=== PATIENT | male | born 1930 | race Caucasian/White ===

== ENCOUNTER → 2016-08-24 | Outpatient (CLI) | payer BC ==
--- NOTE | 2016-08-24 11:49 | DIAGNOSTIC IMAGING REPORT ---
CHEST 2 VIEWS ROUTINE HISTORY: SPASMODIC COUGH COMPARISON: None. FINDINGS: No pneumothorax. No pleural effusions. The lungs are hyperexpanded with apical predominant emphysematous changes. Punctate calcified granuloma within the left upper lobe. The heart is normal in size. Increased markings at the lung bases favors vascular crowding. IMPRESSION: Emphysema. No focal lung consolidations to suggest pneumonia. Electronically signed by: Jon Fung M.D. 08/24/2016 11:47 AM Dictated Date/Time: 08/24/2016 11:45 AM
== END | disposition home or self-care (01) ==
LOC: C.RAD1850 11:26
PROVIDERS: ATTEND Nurse Practitioner Family
DX: R05 Cough (principal); R09.89 Other specified symptoms and signs involving the circulatory and respiratory systems; J20.9 Acute bronchitis, unspecified

== ENCOUNTER → 2017-01-27 | Outpatient (CLI) | payer BC | END | disposition home or self-care (01) | LOC: C.MAMM 14:40 | PROVIDERS: ATTEND Family Medicine | DX: M85.88 Other specified disorders of bone density and structure, other site (principal) ==

== ENCOUNTER → 2017-05-24 | Outpatient (CLI) | payer BC ==
--- NOTE | 2017-05-24 10:47 | DIAGNOSTIC IMAGING REPORT ---
RIGHT HAND 3 VIEWS CLINICAL HISTORY: Right hand pain. FINDINGS: 3 views the right hand are obtained. No prior studies are available for comparison at the time of dictation. The skeletal structures are osteopenic. No fracture is seen. 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 There is advanced joint narrowing at the radiocarpal articulation. 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 Moderate osteoarthritic change is present the first carpometacarpal joint with bony sclerosis, overgrowth, and subluxation. Mild arthritic change is seen at the first metacarpophalangeal joint. There is osteoarthritic change involving the interphalangeal joints, distal greater than proximal. 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 Subluxation is noted at the second distal interphalangeal joint. Mild soft tissue swelling is present in the fingers and around the wrist. IMPRESSION: 1. Generalized osteopenia. No acute fracture is seen. 2. 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 3. There is marked widening between the scaphoid and lunate with proximal migration of the distal carpal row consistent with a SLAC wrist. 4. 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 5. Additional foci of arthritic change as above. Electronically signed by: Boris Vargas M.D. 05/24/2017 10:46 AM Dictated Date/Time: 05/24/2017 10:42 AM
== END | disposition home or self-care (01) ==
LOC: C.RAD1850 10:24
PROVIDERS: ATTEND Family Medicine
DX: M62.81 Muscle weakness (generalized) (principal); M79.641 Pain in right hand

== ENCOUNTER → 2017-06-27 | Outpatient (CLI) | payer BC | END | disposition home or self-care (01) | LOC: C.RDSM 14:55 | PROVIDERS: ATTEND Physical Medicine & Rehabilitation Sports Medicine | DX: M19.031 Primary osteoarthritis, right wrist (principal) ==

== ENCOUNTER → 2017-07-14 | Outpatient (CLI) | payer BC | END | disposition home or self-care (01) | LOC: C.RDSM 12:58 | PROVIDERS: ATTEND Orthopaedic Surgery | DX: M79.641 Pain in right hand (principal) ==

== ENCOUNTER 2017-08-12 20:41 | Inpatient (IN) | payer BC, OTHER ==
[~2017-08-12] VITALS: Ht 170.2 cm; Wt 69.7 kg
--- NOTE | 2017-08-12 21:00 | EMERGENCY ROOM VISIT NOTE ---
History Report prepared by Juanitaibxin: Priti Rosenbaum Under the Supervision of: Dr. Farhat Davidson M.D. First contact with patient: 20:51 Chief Complaint: GI ASSESSMENT Stated Complaint: BLOODY DIARRHEA History of Present Illness The patient is an 86 year old male who presents to the Emergency Room with complaints of persistent bloody diarrhea since this morning. He is accompanied by his son. He admits he took "6 to 7 325 mg Aspirin tablets for the past 3 days " because he was experiencing "congestion". This morning he started experiencing bright red blood in his stool. The color of his stool has gradually become darker in color throughout the day. He believes he's had 3 bloody episodes of diarrhea over the course of the day. The patient went to a local walk in clinic earlier this evening and was referred here to the ED. He admits to a history of diverticulosis. He denies ever needing a blood transfusion in the past. The patient denies any chest pain, abdominal pain or weakness. His son notes he did receive a flu shot this year. Source of History: patient Onset: this morning Position: other (rectum) Timing: other (persistent) Modifying Factors (Relieving): other (Aspirin) Associated Symptoms: No chest pain, No abdominal pain, No weakness Review of Systems See HPI for pertinent positives & negatives. A total of 10 systems reviewed and were otherwise negative. Past Medical & Surgical Medical Problems: (1) Diverticulosis Social History Smoking Status: Never Smoker Alcohol Use: none Drug Use: none Marital Status: Housing Status: lives with family Occupation Status: retired Current/Historical Medications Scheduled Aspirin (Aspirin Ec), 81 MG PO DAILY Calcium Carbonate-Vitamin D (Calcium + D3 600-200 mg-Unit), 1 TAB PO DAILY Cholecalciferol (Vitamin D3), 2,000 UNITS PO DAILY Coenzyme Q10 (Ubidecarenone) (Co Q-10), 50 MG PO DAILY Cyanocobalamin (Vitamin B-12), Unknown Dose PO DAILY Desonide 0.05% (Desowen 0.05%), 1 APPLN TOP BID Dorzolamide Hcl-Timolol Maleat (Cosopt Oph), 1 DROPS OPB BID Fish Oil (Flint-3), 1,000 MG PO BID Latanoprost (Xalatan 0.005% Oph Abigail), 1 DROPS OPB HS Metoprolol Succ (Toprol Xl) (Toprol-Xl), 25 MG PO DAILY Multivitamin (Multivitamin), 1 TAB PO DAILY Phenazopyridine HCl (Pyridium), 200 MG PO TID Pyridoxine (Vitamin B6), 200 MG PO DAILY Simvastatin (Zocor), 20 MG PO QPM Tamsulosin Hcl (Flomax), 0.4 MG PO DAILY Scheduled PRN Guaifenesin-Codeine (Codeine/Guaifenesin 100-10 mg/5Ml), 10 ML PO Q6H PRN for Cough Lansoprazole (Prevacid), 30 MG PO DAILY PRN for REFLUX Naproxen (Aleve), 220 MG PO Q8 PRN for Pain Allergies Coded Allergies: Celecoxib (Verified Adverse Reaction, Intermediate, DIARRHEA, 08/12/17) Physical Exam Vital Signs Date Time Temp Pulse Resp B/P (MAP) Pulse Ox O2 Delivery O2 Flow Rate FiO2 08/12/17 23:43 83 18 144/97 100 Room Air 08/12/17 22:44 85 18 161/91 100 Room Air 08/12/17 21:08 Room Air 08/12/17 20:44 36.3 81 20 129/87 100 Room Air Physical Exam GENERAL: Patient is a healthy-appearing well-nourished 86 year old male HEAD: Normocephalic atraumatic EYES: Ocular movements intact pupils equal and react to light OROPHARYNX mucous membranes are moist no exudates present no erythema or edema present NECK: Supple no nuchal rigidity CHEST: Good equal expansion LUNGS: Clear and equal to auscultation CARDIAC: Normal S1 and S2 ABDOMEN: Soft nontender no guarding BACK: No CVA tenderness RECTAL: Dark red blood per rectum EXTREMITIES: No pain upon palpation normal muscle strength in all groups no clubbing cyanosis or edema NEURO: Patient is following commands and answering questions appropriately. Alert and oriented x3 Cranial Nerves 2-12 grossly intact Medical Decision & Procedures ER Provider Diagnostic Interpretation: Radiology results as stated below per my review and radiologist interpretation: CHEST ONE VIEW PORTABLE CLINICAL HISTORY: Congestion. COMPARISON STUDY: Chest radiograph August 24, 2016. FINDINGS: Mild left basilar opacity is suggestive of atelectasis. There is no consolidation to suggest pneumonia. There is no evidence of pulmonary edema. Cardiomediastinal silhouette is stable. IMPRESSION: No acute cardiopulmonary findings. Electronically signed by: Braeden Cha M.D. 08/12/2017 10:[address] OF THE ABDOMEN AND PELVIS WITH CONTRAST CLINICAL HISTORY: Rectal bleed. COMPARISON STUDY: None. TECHNIQUE: Following IV administration of 115 mL of Optiray-320, axial images of the abdomen and pelvis were obtained from the lung bases to the proximal femurs. Images were reviewed in the axial, sagittal, and coronal planes. IV contrast was administered without complication. A dose lowering technique was utilized adhering to the principles of ALARA. CT DOSE: 287.89 mGy.cm FINDINGS: Note is made of a 1.7 cm lateral segment hepatic cyst. There are numerous water attenuation bilateral renal lesions which are consistent with cysts. The largest is a 5.6 cm left renal lesion. A few renal lesions are too small to characterize. There is no hydronephrosis. The adrenal glands and spleen are unremarkable. A 2.8 cm water attenuation pancreatic tail lesion is present. There is no biliary ductal dilatation. Caliber of the main pancreatic duct is at the upper limits of normal. There is no peripancreatic infiltration. No pneumatosis, free air or portal venous gas is present. Sensitivity for detection mucosal lesions within the bowel is diminished given CT technique. There is colonic diverticulosis without evidence for acute diverticulitis. There is no bowel obstruction. There is no lymphadenopathy. No suspicious osseous lesions are present. There is an old L5 compression deformity. There is no ascites. IMPRESSION: 1. Colonic diverticulosis without evidence for acute diverticulitis. Decreased sensitivity for detection mucosal lesions given CT technique. No bowel obstruction. 2. 2.8 cm cystic pancreatic tail lesion. This is indeterminate but statistically reflects a side branch IPMN. 3. Numerous renal cysts and a few subcentimeter renal lesions which are too small to characterize. Electronically signed by: Braeden Cha M.D. 08/12/2017 10:55 PM Laboratory Results 08/12/17 21:19 Red Blood Count 4.52, Mean Corpuscular Volume 87.2, Mean Corpuscular Hemoglobin 29.6, Mean Corpuscular Hemoglobin Concent 34.0, Mean Platelet Volume 9.8, Neutrophils (%) (Auto) 64.5, Lymphocytes (%) (Auto) 25.3, Monocytes (%) (Auto) 8.7, Eosinophils (%) (Auto) 1.1, Basophils (%) (Auto) 0.2, Neutrophils # (Auto) 5.38, Lymphocytes # (Auto) 2.11, Monocytes # (Auto) 0.73, Eosinophils # (Auto) 0.09, Basophils # (Auto) 0.02 Test 08/12/17 00:00 08/12/17 21:19 08/12/17 22:46 08/13/17 00:19 White Blood Count 8.35 K/uL (4.8-10.8) Red Blood Count 4.52 M/uL (4.7-6.1) Hemoglobin 13.4 g/dL (14.0-18.0) Hematocrit 39.4 % (42-52) Mean Corpuscular Volume 87.2 fL (80-100) Mean Corpuscular Hemoglobin 29.6 pg (25-34) Mean Corpuscular Hemoglobin Concent 34.0 g/dl (32-36) Platelet Count 146 K/uL (130-400) Mean Platelet Volume 9.8 fL (7.4-10.4) Neutrophils (%) (Auto) 64.5 % Lymphocytes (%) (Auto) 25.3 % Monocytes (%) (Auto) 8.7 % Eosinophils (%) (Auto) 1.1 % Basophils (%) (Auto) 0.2 % Neutrophils # (Auto) 5.38 K/uL (1.4-6.5) Lymphocytes # (Auto) 2.11 K/uL (1.2-3.4) Monocytes # (Auto) 0.73 K/uL (0.11-0.59) Eosinophils # (Auto) 0.09 K/uL (0-0.5) Basophils # (Auto) 0.02 K/uL (0-0.2) RDW Standard Deviation 46.1 fL (36.4-46.3) RDW Coefficient of Variation 14.4 % (11.5-14.5) Immature Granulocyte % (Auto) 0.2 % Immature Granulocyte # (Auto) 0.02 K/uL (0.00-0.02) Prothrombin Time 11.0 SECONDS (9.0-12.0) Prothromb Time International Ratio 1.0 (0.9-1.1) Activated Partial Thromboplast Time 26.9 SECONDS (21.0-31.0) Partial Thromboplastin Ratio 1.0 Est Creatinine Clear Calc Drug Dose 50.8 ml/min Total Bilirubin 0.4 mg/dl (0.2-1) Direct Bilirubin < 0.1 mg/dl (0-0.2) Aspartate Amino Transf (AST/SGOT) 20 U/L (15-37) Alanine Aminotransferase (ALT/SGPT) 23 U/L (12-78) Alkaline Phosphatase 51 U/L (45-117) Total Creatine Kinase 65 U/L (39-308) Creatine Kinase MB 1.8 ng/ml (0.5-3.6) Creatine Kinase MB Ratio 2.8 (0-3.0) Troponin I < 0.015 ng/ml (0-0.045) Pro-B-Type Natriuretic Peptide 678 pg/ml (0-1800) Total Protein 6.4 gm/dl (6.4-8.2) Albumin 3.3 gm/dl (3.4-5.0) Lipase 177 U/L (73-393) Influenza Type A (RT-PCR) Neg for Influ A (NEG) Influenza Type A Antigen Neg for Influ A (NEG) Influenza Type B Antigen Neg for Influ B (NEG) Influenza Type B (RT-PCR) Neg for Influ B (NEG) Urine Color YELLOW Urine Appearance CLEAR (CLEAR) Urine pH 5.0 (4.5-7.5) Urine Specific [place] > 1.045 (1.000-1.030) Urine Protein NEG (NEG) Urine Glucose (UA) NEG (NEG) Urine Ketones NEG (NEG) Urine Occult Blood 1+ (NEG) Urine Nitrite NEG (NEG) Urine Bilirubin NEG (NEG) Urine Urobilinogen NEG (NEG) Urine Leukocyte Esterase NEG (NEG) Urine WBC (Auto) 1-5 /hpf (0-5) Urine RBC (Auto) 0-4 /hpf (0-4) Urine Hyaline Casts (Auto) 1-5 /lpf (0-5) Urine Epithelial Cells (Auto) 0-5 /lpf (0-5) Urine Bacteria (Auto) NEG (NEG) Date/Time Source Procedure Growth Status 08/12/17 00:00 Stool C.difficile Toxin B Gene (PCR) - Final No C. difficile toxin B gene detected Complete Labs reviewed by ED physician. Medications Administered Medications (Trade) Dose Ordered Sig/Gokul Route Start Time Stop Time Status Last Admin Dose Admin Pantoprazole Sodium 40 mg/ Syringe 10 ml @ 5 mls/min NOW ONCE IV 08/12/17 23:15 08/12/17 23:16 DC 08/12/17 23:41 5 MLS/MIN Pantoprazole Sodium 40 mg/ Syringe 10 ml @ 5 mls/min NOW STAT IV 08/12/17 23:46 08/12/17 23:47 DC 08/13/17 00:30 5 MLS/MIN Pantoprazole Sodium 40 mg/ Dextrose 100 ml @ 20 mls/hr Q5H IV 08/13/17 00:00 08/13/17 04:59 08/13/17 00:30 20 MLS/HR ECG Indication: weakness Rate (beats per minute): 82 Rhythm: sinus rhythm Findings: 1st degree AV block, PVC, no acute ischemic change ED Course 2052: Past medical records reviewed. The patient was evaluated in room B4. A complete history and physical examination was performed. 2300: I reevaluated the patient. He is resting comfortably. I discussed his results and my recommendation he remain in the hospital for further evaluation and management and he and his son verbalized complete understanding and agreement. 2308: I discussed the patients case with Dr. Escamilla, [facility] Hospitalist. The patient will be further evaluated. 2309: Protonix IV Bolus/Drip 1 ea IV. 2315: Pantoprazole Sodium 40 mg/Syringe 10 ml @ 5 mls/min IV. Medical Decision Prior records/ancillary studies reviewed. Triage Nursing notes reviewed. Additional history obtained from the patients son. The patient's history was concerning for possible gastrointestinal bleeding. Differential diagnosis: Etiologies such as diverticulosis, AVM, coagulopathy, colitis, inflammatory bowel disease, malignancy, Richelle-Stanley tear, esophagitis, peptic ulcer disease , variceal bleed, gastritis, epistaxis, fissure, hemorrhoids, as well as others were entertained. This is an 86-year-old male who presents emergency department complaining of a rectal bleed. The patient took multiple doses of aspirin over the past several days trying get himself over congestion. Due to the large amount of bleeding I did discuss the case with the hospitalist service. The patient's hemoglobin at this point is 13. He was started on Protonix bolus and drip. Patient and family were in agreement with the treatment plan. Medication Reconcilliation Current Medication List: was personally reviewed by me Blood Pressure Screening Patient's blood pressure: Elevated blood pressure Blood pressure disposition: Referred to PCP Consults Time Called: 2301 Consulting Physician: Dr. Escamilla [facility] Hospitalist Returned Call: [phone] I discussed the patients case with Dr. Escamilla [facility] Hospitalist. The patient will be further evaluated. Impression Primary Impression: Rectal bleed Scribe Attestation The scribe's documentation has been prepared under my direction and personally reviewed by me in its entirety. I confirm that the note above accurately reflects all work, treatment, procedures, and medical decision making performed by me. Departure Information Dispostion Being Evaluated By Hospitalist Referrals No Doctor, Assigned (PCP) Patient Instructions [facility]
[2017-08-12 21:32] LABS: BASO % 0.2 %; BASO ABS # 0.02 K/uL (0-0.2); EOS % 1.1 %; EOS ABS # 0.09 K/uL (0-0.5); HEMATOCRIT 39.4 % (42-52); HEMOGLOBIN 13.4 g/dL (14.0-18.0); IG# 0.02 K/uL (0.00-0.02); LYMPH % 25.3 %; LYMPH ABS # 2.11 K/uL (1.2-3.4); MEAN CELL VOLUME 87.2 fL (80-100); MEAN CORPUSCULAR HEMOGLOBIN 29.6 pg (25-34); MEAN PLATELET VOLUME 9.8 fL (7.4-10.4); MONO % 8.7 %; MONO ABS # 0.73 K/uL (0.11-0.59); NEUT % 64.5 %; NEUT ABS # 5.38 K/uL (1.4-6.5); PLATELET COUNT 146 K/uL (130-400); RED CELL DISTRIBUTION WIDTH CV 14.4 % (11.5-14.5); RED CELL DISTRIBUTION WIDTH SD 46.1 fL (36.4-46.3); WHITE BLOOD COUNT 8.35 K/uL (4.8-10.8)
[2017-08-12] MEDS ORDERED: METO25TA3 PO (21:33)
[2017-08-12] MEDS ORDERED: SIMV20TA2 PO (21:34)
[2017-08-12] MEDS ORDERED: TAMS0.4C38 PO (21:35)
[2017-08-12] MEDS ORDERED: GUAI1SOL5 PO (21:38)
[2017-08-12] MEDS ORDERED: LANS30CA63 PO (21:41)
[2017-08-12] MEDS ORDERED: PYRI100T4 PO (21:43)
[2017-08-12] MEDS ORDERED: PHEN-876 PO (21:43)
[2017-08-12] MEDS ORDERED: NAPR1TAB9 PO (21:44)
[2017-08-12] MEDS ORDERED: OMEG10007 PO (21:45)
[2017-08-12] MEDS ORDERED: COEN50CA2 PO (21:48)
[2017-08-12 21:49] LABS: ALBUMIN 3.3 gm/dl (3.4-5.0); ALT/SGPT 23 U/L (12-78); BLOOD UREA NITROGEN 28 mg/dl (7-18); CALCIUM 8.2 mg/dl (8.5-10.1); CARBON DIOXIDE 25 mmol/L (21-32); CREATININE 0.94 mg/dl (0.60-1.40); GLUCOSE 104 mg/dl (70-99); LIPASE 177 U/L (73-393); SODIUM 140 mmol/L (136-145)
[2017-08-12] MEDS ORDERED: CYAN500T PO (21:49)
[2017-08-12] MEDS ORDERED: CHOL2000 PO (21:50)
[2017-08-12] MEDS ORDERED: CALC-388 PO (21:52)
[2017-08-12] MEDS ORDERED: MULT-506 PO (21:53)
[2017-08-12] MEDS ORDERED: LATA0.5S OPB (21:54)
[2017-08-12 21:55] LABS: ALKALINE PHOSPHATASE 51 U/L (45-117); AST/SGOT 20 U/L (15-37); CKMB 1.8 ng/ml (0.5-3.6); TOTAL PROTEIN 6.4 gm/dl (6.4-8.2)
[2017-08-12] MEDS ORDERED: DORZ1SOL6 OPB (21:55)
[2017-08-12] MEDS ORDERED: ASPI81TA28 PO (21:56)
[2017-08-12] MEDS ORDERED: DSWCR TOP (21:58)
[2017-08-12 22:02] LABS: PTT PATIENT 26.9 SECONDS (21.0-31.0)
[2017-08-12] MEDS ORDERED: OPTIRAY 320 IV PRN (22:15)
--- NOTE | 2017-08-12 22:34 | DIAGNOSTIC IMAGING REPORT ---
CHEST ONE VIEW PORTABLE CLINICAL HISTORY: Congestion. COMPARISON STUDY: Chest radiograph August 24, 2016. FINDINGS: Mild left basilar opacity is suggestive of atelectasis. There is no consolidation to suggest pneumonia. There is no evidence of pulmonary edema. Cardiomediastinal silhouette is stable. IMPRESSION: No acute cardiopulmonary findings. Electronically signed by: Braeden Cha M.D. 08/12/2017 10:33 PM Dictated Date/Time: 08/12/2017 10:32 PM
[2017-08-12 22:35] LABS: INFLUENZA B ANTIGEN Neg for Influ B (NEG)
--- NOTE | 2017-08-12 22:56 | DIAGNOSTIC IMAGING REPORT ---
CT OF THE ABDOMEN AND PELVIS WITH CONTRAST CLINICAL HISTORY: Rectal bleed. COMPARISON STUDY: None. TECHNIQUE: Following IV administration of 115 mL of Optiray-320, axial images of the abdomen and pelvis were obtained from the lung bases to the proximal femurs. Images were reviewed in the axial, sagittal, and coronal planes. IV contrast was administered without complication. A dose lowering technique was utilized adhering to the principles of ALARA. CT DOSE: 287.89 mGy.cm FINDINGS: Note is made of a 1.7 cm lateral segment hepatic cyst. There are numerous water attenuation bilateral renal lesions which are consistent with cysts. The largest is a 5.6 cm left renal lesion. A few renal lesions are too small to characterize. There is no hydronephrosis. The adrenal glands and spleen are unremarkable. A 2.8 cm water attenuation pancreatic tail lesion is present. There is no biliary ductal dilatation. Caliber of the main pancreatic duct is at the upper limits of normal. There is no peripancreatic infiltration. No pneumatosis, free air or portal venous gas is present. Sensitivity for detection mucosal lesions within the bowel is diminished given CT technique. There is colonic diverticulosis without evidence for acute diverticulitis. There is no bowel obstruction. There is no lymphadenopathy. No suspicious osseous lesions are present. There is an old L5 compression deformity. There is no ascites. IMPRESSION: 1. Colonic diverticulosis without evidence for acute diverticulitis. Decreased sensitivity for detection mucosal lesions given CT technique. No bowel obstruction. 2. 2.8 cm cystic pancreatic tail lesion. This is indeterminate but statistically reflects a side branch IPMN. 3. Numerous renal cysts and a few subcentimeter renal lesions which are too small to characterize. Electronically signed by: Braeden Cha M.D. 08/12/2017 10:55 PM Dictated Date/Time: 08/12/2017 10:48 PM
[2017-08-12 23:13] LABS: INFLUENZA A PCR Neg for Influ A (NEG); INFLUENZA B PCR Neg for Influ B (NEG)
[2017-08-12] MEDS ORDERED: PANTOprazole INJ 40 MG in SYRINGE 0 ML IV ONE (23:15)
[2017-08-12] MEDS ORDERED: D5W AND NSS 1,000 ML IV SCH (23:30)
--- NOTE | 2017-08-12 23:37 | History and Physical ---
History & Physical Date & Time of Service: Aug 12, 2017 at 23:29 Chief Complaint: Bloody Diarrhea Primary Care Physician: Harrison Saucedo M.D. History of Present Illness Source: patient 86 y/o M Hx HTN, HPL, BPH - developed congestion earlier in week and has been taking ASA daily as a result. This AM he reports onset of diarrhea with bright red blood. Diarrhea persisted and stool became gradually darker in color. He denies abdominal pain, nausea/vomiting, fevers, SOB or lightheadedness. The pt has a history of diverticulosis without diverticulitis and reports polyps on a distant colonoscopy. Past Medical/Surgical History 1) HTN 2) HPL 3) BPH 4) Diverticulosis 5) Colonic polyps Social History Smoking Status: Never Smoker Drug Use: none Marital Status: Occupational Status: retired Multi-Drug Resistant Organisms History of MDRO: No Allergies Coded Allergies: Celecoxib (Verified Adverse Reaction, Intermediate, DIARRHEA, 08/12/17) Home Medications Scheduled Aspirin (Aspirin Ec), 81 MG PO DAILY Calcium Carbonate-Vitamin D (Calcium + D3 600-200 mg-Unit), 1 TAB PO DAILY Cholecalciferol (Vitamin D3), 2,000 UNITS PO DAILY Coenzyme Q10 (Ubidecarenone) (Co Q-10), 50 MG PO DAILY Cyanocobalamin (Vitamin B-12), Unknown Dose PO DAILY Desonide 0.05% ([place] 0.05%), 1 APPLN TOP BID Dorzolamide Hcl-Timolol Maleat (Cosopt Oph), 1 DROPS OPB BID Fish Oil ([place]-3), 1,000 MG PO BID Latanoprost (Xalatan 0.005% Oph Abigail), 1 DROPS OPB HS Metoprolol Succ (Toprol Xl) (Toprol-Xl), 25 MG PO DAILY Multivitamin (Multivitamin), 1 TAB PO DAILY Phenazopyridine HCl (Pyridium), 200 MG PO TID Pyridoxine (Vitamin B6), 200 MG PO DAILY Simvastatin (Zocor), 20 MG PO QPM Tamsulosin Hcl (Flomax), 0.4 MG PO DAILY Scheduled PRN Guaifenesin-Codeine (Codeine/Guaifenesin 100-10 mg/5Ml), 10 ML PO Q6H PRN for Cough Lansoprazole (Prevacid), 30 MG PO DAILY PRN for REFLUX Naproxen (Aleve), 220 MG PO Q8 PRN for Pain Review of Systems Constitutional: No fever, No chills, No sweats Eyes: No worsening of vision ENT: + nasal symptoms, + problem reported (Reports congestion for a few days), No hearing loss Respiratory: No cough, No sputum, No wheezing Cardiovascular: No chest pain, No PND Abdomen: + diarrhea, + GI bleeding, No pain, No vomiting, No constipation Musculoskeletal: No joint pain Genitourinary - Male: No hematuria, No dysuria Neurologic: No memory loss, No weakness Psychiatric: No depression symptoms Endocrine: No fatigue Hematologic / Lymphatic: + abnormal bleeding/bruising Integumentary: No rash Allergic / Immunologic: No environmental allergies Physical Exam Vital Signs Date Time Temp Pulse Resp B/P (MAP) Pulse Ox O2 Delivery O2 Flow Rate FiO2 08/12/17 22:44 85 18 161/91 100 Room Air 08/12/17 21:08 Room Air 08/12/17 20:44 36.3 81 20 129/87 100 Room Air General Appearance: WD/WN, no apparent distress Head: normocephalic Eyes: normal inspection ENT: normal ENT inspection, pharynx normal Neck: supple, no JVD Respiratory/Chest: chest non-tender, lungs clear, normal breath sounds Cardiovascular: regular rate, rhythm, + pertinent finding (There is either an S3 or split S2) Abdomen/GI: normal bowel sounds, non tender, soft Back: normal inspection, no CVA tenderness Extremities/Musculoskelatal: normal inspection, no calf tenderness, normal capillary refill 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, no motor/sensory deficits, alert, oriented x 3 Skin: normal color Diagnostics Laboratory Results Results Past 24 Hours Test 08/12/17 00:00 08/12/17 21:19 08/12/17 22:46 08/12/17 23:27 Range/Units White Blood Count 8.35 4.8-10.8 K/uL Red Blood Count 4.52 4.7-6.1 M/uL Hemoglobin 13.4 14.0-18.0 g/dL Hematocrit 39.4 42-52 % Mean Corpuscular Volume 87.2 80-100 fL Mean Corpuscular Hemoglobin 29.6 25-34 pg Mean Corpuscular Hemoglobin Concent 34.0 32-36 g/dl Platelet Count 146 130-400 K/uL Mean Platelet Volume 9.8 7.4-10.4 fL Neutrophils (%) (Auto) 64.5 % Lymphocytes (%) (Auto) 25.3 % Monocytes (%) (Auto) 8.7 % Eosinophils (%) (Auto) 1.1 % Basophils (%) (Auto) 0.2 % Neutrophils # (Auto) 5.38 1.4-6.5 K/uL Lymphocytes # (Auto) 2.11 1.2-3.4 K/uL Monocytes # (Auto) 0.73 0.11-0.59 K/uL Eosinophils # (Auto) 0.09 0-0.5 K/uL Basophils # (Auto) 0.02 0-0.2 K/uL RDW Standard Deviation 46.1 36.4-46.3 fL RDW Coefficient of Variation 14.4 11.5-14.5 % Immature Granulocyte % (Auto) 0.2 % Immature Granulocyte # (Auto) 0.02 0.00-0.02 K/uL Prothrombin Time 11.0 9.0-12.0 SECONDS Prothromb Time International Ratio 1.0 0.9-1.1 Activated Partial Thromboplast Time 26.9 21.0-31.0 SECONDS Partial Thromboplastin Ratio 1.0 Sodium Level 140 136-145 mmol/L Potassium Level 4.0 3.5-5.1 mmol/L Chloride Level 108 98-107 mmol/L Carbon Dioxide Level 25 21-32 mmol/L Anion Gap 7.0 3-11 mmol/L Blood Urea Nitrogen 28 7-18 mg/dl Creatinine 0.94 0.60-1.40 mg/dl Est Creatinine Clear Calc Drug Dose 50.8 ml/min Estimated GFR () 83.6 Estimated GFR (Non- 72.1 BUN/Creatinine Ratio 30.2 10-20 Random Glucose 104 70-99 mg/dl Calcium Level 8.2 8.5-10.1 mg/dl Total Bilirubin 0.4 0.2-1 mg/dl Direct Bilirubin < 0.1 0-0.2 mg/dl Aspartate Amino Transf (AST/SGOT) 20 15-37 U/L Alanine Aminotransferase (ALT/SGPT) 23 12-78 U/L Alkaline Phosphatase 51 45-117 U/L Total Creatine Kinase 65 39-308 U/L Creatine Kinase MB 1.8 0.5-3.6 ng/ml Creatine Kinase MB Ratio 2.8 0-3.0 Troponin I < 0.015 0-0.045 ng/ml Pro-B-Type Natriuretic Peptide 678 0-1800 pg/ml Total Protein 6.4 6.4-8.2 gm/dl Albumin 3.3 3.4-5.0 gm/dl Lipase 177 73-393 U/L Influenza Type A (RT-PCR) Neg for Influ A NEG Influenza Type A Antigen Neg for Influ A NEG Influenza Type B Antigen Neg for Influ B NEG Influenza Type B (RT-PCR) Neg for Influ B NEG Urine Color YELLOW Urine Appearance CLEAR CLEAR Urine pH 5.0 4.5-7.5 Urine Specific [place] > 1.045 1.000-1.030 Urine Protein NEG NEG Urine Glucose (UA) NEG NEG Urine Ketones NEG NEG Urine Occult Blood 1+ NEG Urine Nitrite NEG NEG Urine Bilirubin NEG NEG Urine Urobilinogen NEG NEG Urine Leukocyte Esterase NEG NEG Urine WBC (Auto) 1-5 0-5 /hpf Urine RBC (Auto) 0-4 0-4 /hpf Urine Hyaline Casts (Auto) 1-5 0-5 /lpf Urine Epithelial Cells (Auto) 0-5 0-5 /lpf Urine Bacteria (Auto) NEG NEG Microbiology Results 08/12/17 C.difficile Toxin B Gene (PCR) - Final, Complete No C. difficile toxin B gene detected 08/12/17 Shiga Toxin Test, Received Pending 08/12/17 Stool Culture, Received Pending Diagnostic Radiology CT abdomen: 1. Colonic diverticulosis without evidence for acute diverticulitis. Decreased sensitivity for detection mucosal lesions given CT technique. No bowel obstruction. 2. 2.8 cm cystic pancreatic tail lesion. This is indeterminate but statistically reflects a side branch IPMN. 3. Numerous renal cysts and a few subcentimeter renal lesions which are too small to characterize. Impression Assessment and Plan 86 y/o M Hx HTN, HPL, BPH - developed congestion earlier in week and has been taking ASA daily as a result. This AM he reports onset of diarrhea with bright red blood. Diarrhea persisted and stool became gradually darker in color. He denies abdominal pain, nausea/vomiting, fevers, SOB or lightheadedness. The pt has a history of diverticulosis without diverticulitis and reports polyps on a distant colonoscopy. 1) GI bleed - BUN is elevated and CT abdomen is negative so that source is likely upper, although he did report bright blood initially. We will keep the pt NPO, consult GI, obtain serial Hbs and place him on IV Pantoprazole. 2) HTN - cont Metoprolol with parameters 3) HPL - takes fish oil which is held 4) BPH - continue Flomax 5) Cystic lesion seen at pancreatic tail on CT - can f/u as outpt if needed Full code - SCDs - total time for this admit including review of labs, meds, imaging - discussion with pt and ER attending - 35 min Level of Care Med/Surg Resuscitation Status FULL RESUSCITATION VTE Prophylaxis Given or contraindicated: SCD's
[2017-08-12] MEDS ORDERED: PANTOprazole INJ 40 MG in SYRINGE 0 ML IV STA (23:46)
[2017-08-13] MEDS: PANTOprazole INJ 40 MG in DEXTROSE 5% 100ML IV SCH ×5 (00:30→23:10)
[2017-08-13 00:43] LABS: CREATININE 0.84 mg/dl (0.60-1.40)
[2017-08-13] MEDS ORDERED: ONDANSETRON INJ 2 MG/ML 2 ML VIAL IV PRN (01:15)
[2017-08-13] MEDS ORDERED: ACETAMINOPHEN 325 MG TAB PO PRN (01:15)
[2017-08-13 02:10] VITALS: BP 151/89; PULSE 79; TEMP 37.1; O2SAT 97; Ht 170.2 cm; Wt 69.7 kg
[2017-08-13 02:20] VITALS: O2SAT 97
[2017-08-13 07:53] VITALS: BP 119/72; PULSE 64; TEMP 36.8; O2SAT 96
[2017-08-13] MEDS: TAMSULOSIN HCL 0.4 MG CAP PO SCH (10:06)
[2017-08-13] MEDS: METOPROLOL SUCC 25MG EXT REL TAB PO SCH (10:07)
[2017-08-13] MEDS: DORZOLAMIDE/TIMOLOL 22.3/6.8MG/ML 10 ML BTL OPB SCH ×2 (10:07→21:11)
--- NOTE | 2017-08-13 13:32 | GASTROINTESTINAL CONSULTATION ---
DATE OF CONSULTATION: 08/13/2017 REASON FOR EVALUATION: GI bleeding. HISTORY OF PRESENT ILLNESS: The patient is an 86-year-old male, previously in good health who developed respiratory cold symptoms about 4 days ago, he was taking about 6 aspirin a day for about 3 days, which he normally does not do and then yesterday about midday began to experience some bloody bowel movements. He had about 6 bowel movements through the course of yesterday and today. Initially, the bleeding was bright red and then it became dark and melenic, through this he has experienced no abdominal pain, no nausea or vomiting. When he presented to the hospital, his hemoglobin was 13.4, but overnight has dropped to 11.3. He has had no prior episodes of bleeding. His last colonoscopy reports as being about 3 years ago when he had some polyps removed and he has diverticulosis. PAST MEDICAL HISTORY: Remarkable for hypertension, benign prostatic hypertrophy, diverticulosis, colon polyps, and hyperlipidemia. MEDICATIONS: Per list. ALLERGIES: CELECOXIB. FAMILY HISTORY: Negative for GI bleeding. SOCIAL HISTORY: The patient is . He is retired, does not smoke. REVIEW OF SYSTEMS: Positive just for GI bleeding. Remainder is negative. PHYSICAL EXAMINATION: GENERAL: The patient appears awake, alert, in no acute distress. VITAL SIGNS: Blood pressure is 160/90, pulse 85. LUNGS: Clear. HEART: Showed a normal S1 and S2 with regular rate and rhythm. ABDOMEN: Scaphoid. There were no scars, no masses, tenderness, or hepatosplenomegaly. RECTAL: Exam shows some melenic stool on the perianal area. IMPRESSION AND PLAN: The patient presents with painless gastrointestinal bleeding after taking aspirin for several days. His bleeding is painless and is most likely upper gastrointestinal in nature. I agree with starting the patient on IV Protonix. We will schedule him for an esophagogastroduodenoscopy on Tuesday, provided he remains stable. If his condition deteriorates, we will scope him emergently sooner. If his esophagogastroduodenoscopy is negative, then he will need to have a colonoscopy, but I suspect that his bleeding source is from an upper gastrointestinal site. We will follow the patient during his hospital stay.
--- NOTE | 2017-08-13 14:26 | Family Medicine Progress Note ---
Progress Note Date of Service Aug 13, 2017. Subjective Pt evaluation today including: conversation w/ patient, physical exam, chart review, lab review, review of inpatient medication list Pain: No pain reported PO Intake: NPO Voiding: no voiding problems Mr. Gonzales reports he feels well today. He states he had 1 bowel movement overnight and 1 this morning, both of which were orange in color, and diarrhea. He denies abdominal pain, n/v, painful defecation, lightheadedness, fever, chills. He remains with his congestion and states he has a slight cough productive of phlegm, rhinorrhea and post-nasal drip. He reports his last colonoscopy was 4-5 years ago at which time they noted diverticulosis, and removed a few polyps, none of which were malignant. He states he does not have a history of GI bleeding, and has never been diagnosed with an ulcer in the past. Constitutional: No fever, No chills Respiratory: + cough, + sputum, No wheezing, No shortness of breath, No dyspnea on exertion, No dyspnea at rest, No hemoptysis Cardiovascular: No chest pain, No orthopnea, No PND, No edema, No claudication, No palpitations Abdomen: + diarrhea, + GI bleeding, No pain, No nausea, No vomiting All Other Systems: Reviewed and Negative Medications Current Inpatient Medications Medications (Trade) Dose Ordered Sig/Gokul Route Start Time Stop Time Status Last Admin Dose Admin Ioversol (Optiray 320) 100 ml UD PRN IV 08/12/17 22:15 08/16/17 22:14 Dorzolamide/ Timolol (Cosopt Op Soln) 1 drops BID OPB 08/13/17 09:00 09/12/17 08:59 08/13/17 10:07 1 DROPS Latanoprost (Xalatan Oph Soln) 1 drops HS OPB 08/13/17 21:00 09/12/17 20:59 Metoprolol Succinate (Toprol Xl Tab) 25 mg DAILY PO 08/13/17 09:00 09/12/17 08:59 08/13/17 10:07 25 MG Simvastatin (Zocor Tab) 20 mg QPM PO 08/13/17 21:00 09/12/17 20:59 Tamsulosin HCl (Flomax Cap) 0.4 mg DAILY PO 08/13/17 09:00 09/12/17 08:59 08/13/17 10:06 0.4 MG Pantoprazole Sodium 40 mg/ Dextrose 100 ml @ 20 mls/hr Q5H IV 08/13/17 00:00 09/12/17 00:00 08/13/17 10:45 20 MLS/HR Acetaminophen (Tylenol Tab) 650 mg Q4H PRN PO 08/13/17 01:15 09/12/17 01:14 Ondansetron HCl (Zofran Inj) 4 mg Q6H PRN IV 08/13/17 01:15 09/12/17 01:14 Objective Vital Signs Date Time Temp Pulse Resp B/P (MAP) Pulse Ox O2 Delivery O2 Flow Rate FiO2 08/13/17 07:53 36.8 64 16 119/72 (88) 96 Room Air 08/13/17 07:15 Room Air 08/13/17 02:20 97 Room Air 08/13/17 02:10 37.1 79 16 151/89 97 Room Air 08/13/17 01:44 74 18 138/77 95 08/13/17 01:08 74 08/13/17 01:00 72 18 116/60 Room Air 08/12/17 23:43 83 18 144/97 100 Room Air 08/12/17 22:44 85 18 161/91 100 Room Air 08/12/17 21:15 79 08/12/17 21:08 Room Air 08/12/17 20:44 36.3 81 20 129/87 100 Room Air Physical Exam General Appearance: WD/WN, no apparent distress Respiratory/Chest: chest non-tender, lungs clear, normal breath sounds, no respiratory distress, no accessory muscle use Cardiovascular: regular rate, rhythm, no edema, no gallop, no JVD, no murmur Abdomen: normal bowel sounds, non tender, soft, no organomegaly, no pulsatile mass Neurologic/Psychiatric: alert, normal mood/affect, oriented x 3 Skin: normal color, warm/dry, no rash Laboratory Results Last 24 Hours Test 08/12/17 21:19 08/12/17 22:46 08/13/17 00:19 08/13/17 03:57 White Blood Count 8.35 K/uL Red Blood Count 4.52 M/uL Hemoglobin 13.4 g/dL 12.8 g/dL Hematocrit 39.4 % Mean Corpuscular Volume 87.2 fL Mean Corpuscular Hemoglobin 29.6 pg Mean Corpuscular Hemoglobin Concent 34.0 g/dl Platelet Count 146 K/uL Mean Platelet Volume 9.8 fL Neutrophils (%) (Auto) 64.5 % Lymphocytes (%) (Auto) 25.3 % Monocytes (%) (Auto) 8.7 % Eosinophils (%) (Auto) 1.1 % Basophils (%) (Auto) 0.2 % Neutrophils # (Auto) 5.38 K/uL Lymphocytes # (Auto) 2.11 K/uL Monocytes # (Auto) 0.73 K/uL Eosinophils # (Auto) 0.09 K/uL Basophils # (Auto) 0.02 K/uL RDW Standard Deviation 46.1 fL RDW Coefficient of Variation 14.4 % Immature Granulocyte % (Auto) 0.2 % Immature Granulocyte # (Auto) 0.02 K/uL Prothrombin Time 11.0 SECONDS Prothromb Time International Ratio 1.0 Activated Partial Thromboplast Time 26.9 SECONDS Partial Thromboplastin Ratio 1.0 Sodium Level 140 mmol/L 141 mmol/L Potassium Level 4.0 mmol/L 4.0 mmol/L Chloride Level 108 mmol/L 108 mmol/L Carbon Dioxide Level 25 mmol/L 25 mmol/L Anion Gap 7.0 mmol/L 8.0 mmol/L Blood Urea Nitrogen 28 mg/dl 25 mg/dl Creatinine 0.94 mg/dl 0.84 mg/dl Est Creatinine Clear Calc Drug Dose 50.8 ml/min 56.8 ml/min Estimated GFR () 83.6 90.6 Estimated GFR (Non- 72.1 78.2 BUN/Creatinine Ratio 30.2 30.0 Random Glucose 104 mg/dl 93 mg/dl Calcium Level 8.2 mg/dl 8.0 mg/dl Total Bilirubin 0.4 mg/dl Direct Bilirubin < 0.1 mg/dl Aspartate Amino Transf (AST/SGOT) 20 U/L Alanine Aminotransferase (ALT/SGPT) 23 U/L Alkaline Phosphatase 51 U/L Total Creatine Kinase 65 U/L Creatine Kinase MB 1.8 ng/ml Creatine Kinase MB Ratio 2.8 Troponin I < 0.015 ng/ml Pro-B-Type Natriuretic Peptide 678 pg/ml Total Protein 6.4 gm/dl Albumin 3.3 gm/dl Lipase 177 U/L Influenza Type A (RT-PCR) Neg for Influ A Influenza Type A Antigen Neg for Influ A Influenza Type B Antigen Neg for Influ B Influenza Type B (RT-PCR) Neg for Influ B Urine Color YELLOW Urine Appearance CLEAR Urine pH 5.0 Urine Specific [place] > 1.045 Urine Protein NEG Urine Glucose (UA) NEG Urine Ketones NEG Urine Occult Blood 1+ Urine Nitrite NEG Urine Bilirubin NEG Urine Urobilinogen NEG Urine Leukocyte Esterase NEG Urine WBC (Auto) 1-5 /hpf Urine RBC (Auto) 0-4 /hpf Urine Hyaline Casts (Auto) 1-5 /lpf Urine Epithelial Cells (Auto) 0-5 /lpf Urine Bacteria (Auto) NEG Magnesium Level 2.0 mg/dl Test 08/13/17 07:45 08/13/17 12:08 Hemoglobin 11.3 g/dL 10.8 g/dL Assessment and Plan Mr. Gonzales is an 86 year old male with a history of HTN, HPL, BPH who developed congestion earlier in week and had been taking ASA daily as a result. He presented with 4x episodes of diarrhea with bright red blood. He denies abdominal pain, nausea/vomiting, fevers, SOB or lightheadedness. The pt has a history of diverticulosis without diverticulitis and reports polyps on a distant colonoscopy. GI bleed & Diarrhea - Hgb dropped from 13.4 on admission to 10.8 - continue trending hemoglobin q6h - CT abdomen negative - cdiff negative, stool culture negative - Thank you to GI for consult - felt to be upper GI in etiology - continue IV pantoprazole - EGD on Tuesday - full liquid, bland diet until then - colonoscopy if EGD negative Cough and Congestion - likely viral in etiology - will monitor Hypertension - continue metoprolol with hold parameters Hyperlipidemia - continue simvastatin BPH - continue flomax Pancreatic Lesion - incidental finding on CT - outpatient follow up Code Status: Full DVT Prophylaxis: SCDs Disposition: remains on med/surg Resident Tracking Resident Involvement: Resident Care Provided Care Provided: Adult Hospital Medicine History Resident Physician Supervision Note: I was present with Dr. Cardenas during the history and exam. I discussed the case with the resident and agree with the findings and plan as documented in the note. Any exceptions or clarifications are listed here. Pt resting comfortably in bed - reports that BM have slowed and become dark orange with darker tinge on TP. General Appearance: WD/WN, no apparent distress Respiratory: chest non-tender, lungs clear, normal breath sounds, no respiratory distress Cardiovascular: normal peripheral pulses, regular rate, rhythm, no murmur Gastrointestinal: normal bowel sounds, non tender, soft, no organomegaly Assessment/Plan 86 y/o male h/o HTN, HLD, BPH with hematochezia s/p ASA bolus GIB - likely UGIB 2/2 ASA - GI consulted and recommendations appreciated. Endoscopy tuesday. Continue PPI regimen w/ diet per GI recommendation HTN - continue metoprolol HLD - continue simvastatin BPH - continue tamsulosin Pancreatic lesion on CT - for outpatient workup
[2017-08-13 15:00] VITALS: BP 119/72; PULSE 64; TEMP 36.9; O2SAT 96
[2017-08-13] MEDS ORDERED: NURSING DECISION MEDICATION ORDER SCH (20:15)
[2017-08-13] MEDS: SIMVASTATIN 20 MG TAB PO SCH (21:11)
[2017-08-13] MEDS: LATANOPROST 0.005% OP SOLN 2.5 ML BTL OPB SCH (21:12)
[2017-08-13 23:18] VITALS: BP 107/65; PULSE 73; TEMP 36.8; O2SAT 94
[2017-08-14] MEDS: PANTOprazole INJ 40 MG in DEXTROSE 5% 100ML IV SCH ×5 (03:59→22:42)
[2017-08-14 05:56] LABS: HEMATOCRIT 33.5 % (42-52); MEAN CELL VOLUME 87.5 fL (80-100); MEAN CORPUSCULAR HEMOGLOBIN 28.7 pg (25-34); MEAN CORPUSCULAR HGB CONC 32.8 g/dl (32-36); MEAN PLATELET VOLUME 9.9 fL (7.4-10.4); PLATELET COUNT 123 K/uL (130-400); RED CELL DISTRIBUTION WIDTH CV 14.6 % (11.5-14.5); RED CELL DISTRIBUTION WIDTH SD 46.8 fL (36.4-46.3); WHITE BLOOD COUNT 8.83 K/uL (4.8-10.8)
[2017-08-14 06:40] LABS: CALCIUM 8.1 mg/dl (8.5-10.1); CREATININE 0.8 mg/dl (0.60-1.40); POTASSIUM 3.8 mmol/L (3.5-5.1)
[2017-08-14 07:24] VITALS: BP 150/81; PULSE 77; TEMP 37.3; O2SAT 95
--- NOTE | 2017-08-14 09:12 | Family Medicine Progress Note ---
Progress Note Date of Service Aug 14, 2017. Subjective Pt evaluation today including: conversation w/ patient, physical exam, chart review, lab review, review of inpatient medication list Pain: No pain reported PO Intake: Tolerating PO intake Voiding: no voiding problems Mr. Gonzales reports he feels well today. He states he has not had a bowel movement since yesterday and denies blood in his urine. He states he remains with no abdominal pain. With regards to his congestion, he states his rhinorrhea is improving, but he still reports a post-nasal drip and cough productive of light green sputum. Constitutional: No fever, No chills Respiratory: + cough, + sputum, No wheezing, No shortness of breath, No dyspnea on exertion Cardiovascular: No chest pain Abdomen: No pain, No nausea, No vomiting, No diarrhea, No constipation All Other Systems: Reviewed and Negative Medications Current Inpatient Medications Medications (Trade) Dose Ordered Sig/Gokul Route Start Time Stop Time Status Last Admin Dose Admin Ioversol (Optiray 320) 100 ml UD PRN IV 08/12/17 22:15 08/16/17 22:14 Dorzolamide/ Timolol (Cosopt Op Soln) 1 drops BID OPB 08/13/17 09:00 09/12/17 08:59 08/13/17 21:11 1 DROPS Latanoprost (Xalatan Oph Soln) 1 drops HS OPB 08/13/17 21:00 09/12/17 20:59 08/13/17 21:12 1 DROPS Metoprolol Succinate (Toprol Xl Tab) 25 mg DAILY PO 08/13/17 09:00 09/12/17 08:59 08/13/17 10:07 25 MG Simvastatin (Zocor Tab) 20 mg QPM PO 08/13/17 21:00 09/12/17 20:59 08/13/17 21:11 20 MG Tamsulosin HCl (Flomax Cap) 0.4 mg DAILY PO 08/13/17 09:00 09/12/17 08:59 08/13/17 10:06 0.4 MG Pantoprazole Sodium 40 mg/ Dextrose 100 ml @ 20 mls/hr Q5H IV 08/13/17 00:00 09/12/17 00:00 08/14/17 03:59 20 MLS/HR Acetaminophen (Tylenol Tab) 650 mg Q4H PRN PO 08/13/17 01:15 09/12/17 01:14 Ondansetron HCl (Zofran Inj) 4 mg Q6H PRN IV 08/13/17 01:15 09/12/17 01:14 Objective Vital Signs Date Time Temp Pulse Resp B/P (MAP) Pulse Ox O2 Delivery O2 Flow Rate FiO2 08/14/17 07:24 37.3 77 16 150/81 (104) 95 Room Air 08/13/17 23:53 Room Air 08/13/17 23:18 36.8 73 18 107/65 (79) 94 Room Air 08/13/17 16:56 Room Air 08/13/17 15:00 36.9 64 18 119/72 (88) 96 Room Air Physical Exam General Appearance: WD/WN, no apparent distress Respiratory/Chest: chest non-tender, lungs clear, normal breath sounds, no respiratory distress, no accessory muscle use Cardiovascular: regular rate, rhythm, no edema, no gallop, no JVD, no murmur Abdomen: normal bowel sounds, non tender, soft, no organomegaly, no pulsatile mass Laboratory Results Last 24 Hours Test 08/13/17 12:08 08/13/17 16:16 08/13/17 22:07 08/14/17 05:28 Hemoglobin 10.8 g/dL 10.6 g/dL 10.1 g/dL 11.0 g/dL White Blood Count 8.83 K/uL Red Blood Count 3.83 M/uL Hematocrit 33.5 % Mean Corpuscular Volume 87.5 fL Mean Corpuscular Hemoglobin 28.7 pg Mean Corpuscular Hemoglobin Concent 32.8 g/dl RDW Standard Deviation 46.8 fL RDW Coefficient of Variation 14.6 % Platelet Count 123 K/uL Mean Platelet Volume 9.9 fL Sodium Level 138 mmol/L Potassium Level 3.8 mmol/L Chloride Level 107 mmol/L Carbon Dioxide Level 27 mmol/L Anion Gap 4.0 mmol/L Blood Urea Nitrogen 13 mg/dl Creatinine 0.80 mg/dl Est Creatinine Clear Calc Drug Dose 59.7 ml/min Estimated GFR () 92.4 Estimated GFR (Non- 79.8 BUN/Creatinine Ratio 16.7 Random Glucose 84 mg/dl Calcium Level 8.1 mg/dl Assessment and Plan Mr. Gonzales is an 86 year old male with a history of HTN, HPL, BPH who developed congestion earlier in week and had been taking ASA daily as a result. He presented with 4x episodes of diarrhea with bright red blood. He denies abdominal pain, nausea/vomiting, fevers, SOB or lightheadedness. The pt has a history of diverticulosis without diverticulitis and reports polyps on a distant colonoscopy. GI bleed & Diarrhea - Hgb on admission 13.4. Currently stable at 11 - continue trending hemoglobin - CT abdomen negative - cdiff negative, stool culture negative - likely upper GI secondary to aspirin use - Thank you to GI for consult - continue IV pantoprazole - EGD tomorrow - full liquid, bland diet until then - colonoscopy if EGD negative Cough and Congestion - likely viral in etiology, cxr negative, flu swab negative - saline nasal spray for symptomatic relief - will monitor Hypertension - continue metoprolol with hold parameters Hyperlipidemia - continue simvastatin BPH - continue flomax Pancreatic Lesion - incidental finding on CT, discussed with patient - outpatient follow up Code Status: Full DVT Prophylaxis: SCDs Disposition: remains on med/surg Resident Tracking Resident Involvement: Resident Care Provided Care Provided: Adult [facility] Medicine History Resident Physician Supervision Note: I was present with Dr. Cardenas during the history and exam. I discussed the case with the resident and agree with the findings and plan as documented in the note. Any exceptions or clarifications are listed here. Pt reports no BM since yesterday. Congestion still persists with mild postnasal drip. Reports no abd pain, n/v, fever, lightehadedness, CP/SOB, palpitations General Appearance: WD/WN, no apparent distress Respiratory: chest non-tender, lungs clear, normal breath sounds, no respiratory distress Cardiovascular: normal peripheral pulses, regular rate, rhythm, no edema, no murmur Gastrointestinal: normal bowel sounds, non tender, soft, no organomegaly Assessment/Plan 86 y/o male h/o HTN, HLD, BPH with hematochezia s/p ASA bolus GIB - likely UGIB 2/2 ASA - GI consulted and recommendations appreciated. Endoscopy tuesday. Continue PPI regimen w/ liq diet Congestion - likely URI - saline nasal spray HTN - continue metoprolol HLD - continue simvastatin BPH - continue tamsulosin Pancreatic lesion on CT - for outpatient workup
[2017-08-14] MEDS: DORZOLAMIDE/TIMOLOL 22.3/6.8MG/ML 10 ML BTL OPB SCH ×2 (09:47→20:37)
[2017-08-14] MEDS: METOPROLOL SUCC 25MG EXT REL TAB PO SCH (09:49)
[2017-08-14] MEDS: TAMSULOSIN HCL 0.4 MG CAP PO SCH (09:51)
[2017-08-14] MEDS ORDERED: SODIUM CHLORIDE 0.65% NA SOLN 45 ML (OCEAN) ONE ×2 (10:30→14:40)
--- NOTE | 2017-08-14 11:29 | PROGRESS NOTE ---
DATE: 08/14/2017 SUBJECTIVE: The patient continues to report no abdominal pain. He had no bowel movement yesterday and today, his bowel movement was brown indicating that he is not having any further active bleeding. OBJECTIVE: VITAL SIGNS: Normal and his blood count has stabilized with a hemoglobin of 11. ABDOMEN: Soft and nontender. IMPRESSION: The patient's gastrointestinal bleeding appears to have stopped and his hemoglobin stabilized. Vitals signs are normal. He is scheduled for an ATD tomorrow with Dr. Martinez to see if we can find the source of bleeding. In the meantime, we will continue on his IV Protonix for now.
[2017-08-14 15:12] VITALS: BP 132/71; PULSE 74; TEMP 36.6; O2SAT 98
[2017-08-14 17:01] LABS: HEMATOCRIT 32.9 % (42-52); HEMOGLOBIN 10.9 g/dL (14.0-18.0)
[2017-08-14] MEDS: LATANOPROST 0.005% OP SOLN 2.5 ML BTL OPB SCH (20:37)
[2017-08-14] MEDS: SODIUM CHLORIDE 0.65% NA SOLN 45 ML (OCEAN) SCH (20:38)
[2017-08-14] MEDS: SIMVASTATIN 20 MG TAB PO SCH (20:38)
[2017-08-14 23:07] VITALS: BP 114/73; PULSE 69; TEMP 36.6; O2SAT 94
[2017-08-15] MEDS: PANTOprazole INJ 40 MG in DEXTROSE 5% 100ML IV SCH ×4 (03:18→20:40)
[2017-08-15 07:56] VITALS: BP 138/76; PULSE 72; TEMP 36.5; O2SAT 96
[2017-08-15] MEDS: TAMSULOSIN HCL 0.4 MG CAP PO SCH (08:31)
[2017-08-15] MEDS: METOPROLOL SUCC 25MG EXT REL TAB PO SCH (08:31)
[2017-08-15] MEDS: SODIUM CHLORIDE 0.65% NA SOLN 45 ML (OCEAN) SCH ×2 (08:32→20:40)
[2017-08-15] MEDS: DORZOLAMIDE/TIMOLOL 22.3/6.8MG/ML 10 ML BTL OPB SCH ×2 (08:32→20:40)
[2017-08-15 09:04] VITALS: O2SAT 96
--- NOTE | 2017-08-15 09:45 | Family Medicine Progress Note ---
Progress Note Date of Service Aug 15, 2017. Subjective Pt evaluation today including: conversation w/ patient, physical exam, chart review, lab review Pain: Patient declines pain at this time PO Intake: NPO from midnight for EGD Voiding: no voiding problems Patient is feeling well today. He reports he has not had a BM recently, but that his diarrhea has stopped and since diarrhea stopping he has had a semi- formed brown stool indicating he is no longer bleeding. He is eager to have his procedure done today. He states he has been urinating frequently Constitutional: + weakness, + fatigue, No fever, No chills, No sweats, No weight loss, No problem reported Respiratory: + cough, No sputum, No wheezing, No shortness of breath, No dyspnea on exertion, No dyspnea at rest, No hemoptysis, No problem reported Cardiovascular: No chest pain, No orthopnea, No PND, No edema, No claudication, No palpitations, No problem reported Abdomen: No pain, No nausea, No vomiting, No diarrhea, No constipation, No GI bleeding, No problem reported Male : + urinary frequency All Other Systems: Reviewed and Negative Medications Current Inpatient Medications Medications (Trade) Dose Ordered Sig/Gokul Route Start Time Stop Time Status Last Admin Dose Admin Ioversol (Optiray 320) 100 ml UD PRN IV 08/12/17 22:15 08/16/17 22:14 Dorzolamide/ Timolol (Cosopt Op Soln) 1 drops BID OPB 08/13/17 09:00 09/12/17 08:59 08/15/17 08:32 1 DROPS Latanoprost (Xalatan Oph Soln) 1 drops HS OPB 08/13/17 21:00 09/12/17 20:59 08/14/17 20:37 1 DROPS Metoprolol Succinate (Toprol Xl Tab) 25 mg DAILY PO 08/13/17 09:00 09/12/17 08:59 08/15/17 08:31 25 MG Simvastatin (Zocor Tab) 20 mg QPM PO 08/13/17 21:00 09/12/17 20:59 08/14/17 20:38 20 MG Tamsulosin HCl (Flomax Cap) 0.4 mg DAILY PO 08/13/17 09:00 09/12/17 08:59 08/15/17 08:31 0.4 MG Pantoprazole Sodium 40 mg/ Dextrose 100 ml @ 20 mls/hr Q5H IV 08/13/17 00:00 09/12/17 00:00 08/15/17 08:32 20 MLS/HR Acetaminophen (Tylenol Tab) 650 mg Q4H PRN PO 08/13/17 01:15 09/12/17 01:14 Ondansetron HCl (Zofran Inj) 4 mg Q6H PRN IV 08/13/17 01:15 09/12/17 01:14 Sodium Chloride ([place] Nasal [place]) 2 sprays BID NA 08/14/17 21:00 09/13/17 20:59 08/15/17 08:32 2 SPRAYS Objective Vital Signs Date Time Temp Pulse Resp B/P (MAP) Pulse Ox O2 Delivery O2 Flow Rate FiO2 08/15/17 09:04 Room Air 96.0 08/15/17 07:56 36.5 72 16 138/76 (96) 96 Room Air 08/15/17 07:45 Room Air 08/14/17 23:22 Room Air 08/14/17 23:07 36.6 69 16 114/73 (87) 94 Room Air 08/14/17 15:20 Room Air 08/14/17 15:12 36.6 74 18 132/71 (91) 98 Room Air Physical Exam General Appearance: WD/WN, no apparent distress Eyes: normal inspection, PERRL, EOMI ENT: normal ENT inspection, pharynx normal, + nasal congestion Neck: supple, no adenopathy, no JVD Respiratory/Chest: chest non-tender, lungs clear, normal breath sounds, no respiratory distress, no accessory muscle use Cardiovascular: regular rate, rhythm, no edema, no gallop, no JVD, no murmur Abdomen: normal bowel sounds, non tender, soft, no organomegaly, no pulsatile mass Extremities: no pedal edema Neurologic/Psychiatric: no motor/sensory deficits, alert, normal mood/affect, oriented x 3 Skin: normal color, warm/dry, no rash Laboratory Results 08/14/17 16:54 Assessment and Plan Mr. Gonzales is an 86 year old male with a history of HTN, HLD, BPH who developed nasal congestion early last week and had been taking several daily ASA. He presented with 4x episodes of diarrhea with bright red blood. He denies abdominal pain, nausea/vomiting, fevers, SOB or lightheadedness. The pt has a PMH of diverticulosis without diverticulitis and reports polyps on a distant colonoscopy. GI bleed & Diarrhea, resolving - Likely upper GI bleed secondary to aspirin overuse - Hgb on admission 13.4 but stable at 10-11. Drop likely due to hemodilution. - continue trending hemoglobin - Patient states he has had semi-formed brown stool indicating he has stopped bleeding. - CT abdomen negative - cdiff negative, stool culture negative - GI consulted - continue IV pantoprazole - EGD today: Nl esophagus with mild Schatzki ring, Medium sized hiatal hernia , Gastritis biopsied, mucosal variant in duodenum biopsied; await pathology - No aspirin, ibuprofen, naproxen, or other NSAID drugs - NPO from midnight for colonoscopy tomorrow. Cough and Congestion - likely viral uri etiology, cxr negative, flu swab negative - saline nasal spray for symptomatic relief - will monitor Hypertension - continue metoprolol with hold parameters Hyperlipidemia - continue simvastatin BPH - continue flomax Pancreatic Lesion - incidental finding on CT, discussed with patient - outpatient follow up Code Status: Full DVT Prophylaxis: SCDs Disposition: remains on med/surg; home possibly tomorrow if colonoscopy neg Resident Tracking Resident Involvement: Resident Care Provided Care Provided: Adult Hospital Medicine Reviewed: Pt Seen/Exam by Me History no further rectal bleeding Constitutional: denies: fever Respiratory: negative: short of breath Cardiovascular: denies chest pain General Appearance: no apparent distress Respiratory: lungs clear, no respiratory distress Cardiovascular: regular rate, rhythm Gastrointestinal: soft Neurologic/Psychiatric: alert, oriented x 3 Skin Characteristics: warm/dry Assessment/Plan Resident Physician Supervision Note: I independently interviewed and examined the patient and verified the murrell history and physical, reviewed labs and image studies, discussed the case with the resident Dr. Samano and agree with the findings and care plan.
--- NOTE | 2017-08-15 12:36 | History & Physical Bridge Note ---
H&P Re-Evaluation Bridge Note: I have examined the patient, reviewed the History & Physical and in the interval since the performance of the History & Physical I have noted the following changes of clinical significance: No changes noted
[2017-08-15] MEDS ORDERED: LIDOCAINE HCL 2% 2 ML VIAL (20MG/ML) ONE (14:22)
[2017-08-15] MEDS ORDERED: PROPOFOL IV EMULSION 10 MG/ML 20 ML VIAL IV ONE (14:22)
[2017-08-15] MEDS ORDERED: EpHEDrine SULFATE INJ 50 MG/ML AMP ONE (14:22)
--- NOTE | 2017-08-15 14:24 | Anesthesiology Progress Note ---
Anesthesia Post Op Note Date & Time Aug 15, 2017 at 14:24 Vital Signs Pain Intensity: 0 Vital Signs Past 12 Hours Date Time Temp Pulse Resp B/P (MAP) Pulse Ox O2 Delivery O2 Flow Rate FiO2 08/15/17 12:23 37 69 18 156/66 (96) 99 Room Air 08/15/17 09:04 96 Room Air 08/15/17 07:56 36.5 72 16 138/76 (96) 96 Room Air 08/15/17 07:45 Room Air Notes Mental Status: alert / awake / arousable, participated in evaluation Pt Amnestic to Procedure: Yes Nausea / Vomiting: adequately controlled Pain: adequately controlled Airway Patency, RR, SpO2: stable & adequate BP & HR: stable & adequate Hydration State: stable & adequate Anesthetic Complications: no major complications apparent
--- NOTE | 2017-08-15 14:29 | GI REPORT ---
Procedure Date: 08/15/2017 1:40 PM Procedure: Upper GI endoscopy Indications: Melena, Gastrointestinal bleeding of unknown origin Medicines: General Anesthesia Complications: No immediate complications. Estimated blood loss: Minimal. Estimated Blood Loss: Estimated blood loss was minimal. Procedure: Pre-Anesthesia Assessment: - Prior to the procedure, a History and Physical was performed, and patient medications and allergies were reviewed. The patient's tolerance of previous anesthesia was also reviewed. The risks and benefits of the procedure and the sedation options and risks were discussed with the patient. All questions were answered, and informed consent was obtained. Prior Anticoagulants: The patient has taken no previous anticoagulant or antiplatelet agents. ASA Grade Assessment: III - A patient with severe systemic disease. After reviewing the risks and benefits, the patient was deemed in satisfactory condition to undergo the procedure. After obtaining informed consent, the endoscope was passed under direct vision. Throughout the procedure, the patient's blood pressure, pulse, and oxygen saturations were monitored continuously. The scope was introduced through the mouth, and advanced to the second part of duodenum. The upper GI endoscopy was accomplished without difficulty. The patient tolerated the procedure well. Findings: The examined esophagus was normal. A low-grade of narrowing, non-obstructing and mild Schatzki ring (acquired) was found at the gastroesophageal junction. A medium-sized hiatal hernia was found. The proximal extent of the gastric folds (end of tubular esophagus) was 41 cm from the incisors. The hiatal narrowing was 45 cm from the incisors. The Z-line was 41 cm from the incisors. Patchy mild inflammation characterized by congestion (edema), erosions and erythema was found in the gastric antrum. Biopsies were taken with a cold forceps for histology. Estimated blood loss was minimal. Verification of patient identification for the specimen was done by the physician and solar thermal technician using the patient's name and medical record number. 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 Biopsies were taken with a cold forceps for histology. Estimated blood loss was minimal. Verification of patient identification for the specimen was done by the physician and solar thermal technician using the patient's name and medical record number. The second portion of the duodenum was normal. Estimated blood loss was minimal. The cardia and gastric fundus were normal on retroflexion. Retained gastric contents are not identified on this exam. Impression: - Normal esophagus. - Low-grade of narrowing, non-obstructing and mild Schatzki ring. - Medium-sized hiatal hernia. - Gastritis. Biopsied. - Mucosal variant in the duodenum. Biopsied. - Normal second portion of the duodenum. Recommendation: - Return patient to [facility] for [facility] care. - Await pathology results. - Perform a colonoscopy tomorrow. - No aspirin, ibuprofen, naproxen, or other non-steroidal anti-inflammatory drugs. MD Kendall Alvarado MD 08/15/2017 2:28:47 PM This report has been signed electronically. Note Initiated On: 08/15/2017 1:40 PM I attest to the content of the Intraoperative Record and orders documented therein, exceptions below
--- NOTE | 2017-08-15 14:30 | Endo History and Physical ---
History & Physical Date of Service: Aug 15, 2017. Chief Complaint: hx polyps Referring Physician: hx polyps History of Present Illness hx polyps Past Surgical History Hx Post-Op Nausea and Vomiting: No (N/A) Social History Smoking Status: Never Smoker Hx Substance Use: No Hx Alcohol Use: Yes (WINE/SPIRITS OCCASIONALY) Allergies Coded Allergies: Celecoxib (Verified Adverse Reaction, Intermediate, DIARRHEA, 08/12/17) Current Medications Reported Home Medications Medications Dose Route/Sig Max Daily Dose Days Date Category Dose Instructions Desowen 0.05% (Desonide) 60 Gm Cr 1 Appln TOP BID 08/12/17 Reported Aspirin Ec (Aspirin) 81 Mg Tab 81 Mg PO DAILY 08/12/17 Reported Cosopt Oph (Dorzolamide Hcl-Timolol Maleat) 1 Abigail Abigail 1 Drops OPB BID 08/12/17 Reported Xalatan 0.005% Oph [place] (Latanoprost) 0.005 % Abigail 1 Drops OPB HS 08/12/17 Reported Multivitamin (Multivitamins) Tab 1 Tab PO DAILY 08/12/17 Reported Calcium + D3 600-200 mg-Unit (Calcium Carbonate-Vitamin D) 1 Tab Tab 1 Tab PO DAILY 08/12/17 Reported Vitamin D3 (Cholecalciferol) 2,000 Unit Cap 2,000 Units PO DAILY 08/12/17 Reported Vitamin B-12 (Cyanocobalamin) Unknown Strength Tab Unknown Dose PO DAILY 08/12/17 Reported Co Q-10 (Coenzyme Q10 (Ubidecarenone)) 50 Mg Cap 50 Mg PO DAILY 08/12/17 Reported [place]-3 (Fish Oil) 1 Ea Cap 1,000 Mg PO BID 08/12/17 Reported Aleve (Naproxen) 220 Mg Tab 220 Mg PO Q8 PRN 08/12/17 Reported Vitamin B6 (Pyridoxine HCl) 100 Mg Tab 200 Mg PO DAILY 08/12/17 Reported Pyridium (Phenazopyridine HCl) 200 Mg Tab 200 Mg PO TID 08/12/17 Reported Prevacid (Lansoprazole) 30 Mg Cap 30 Mg PO DAILY PRN 08/12/17 Reported Codeine/Guaifenesin 100-10 mg/5Ml (Guaifenesin-Codeine) 1 Abigail Abigail 10 Ml PO Q6H PRN 08/12/17 Reported NOT TO EXCEED 12 TEASPOONS DAILY. Flomax (Tamsulosin Hcl) 0.4 Mg Cap 0.4 Mg PO DAILY 08/12/17 Reported Zocor (Simvastatin) 20 Mg Tab 20 Mg PO QPM 08/12/17 Reported Toprol-Xl (Metoprolol Succinate) 25 Mg Tabcr 25 Mg PO DAILY 08/12/17 Reported Vital Signs Weight (Kilograms): 69.700 Height (Feet): 5 Height (Inches): 7.00 Date Time Temp Pulse Resp B/P (MAP) Pulse Ox O2 Delivery O2 Flow Rate FiO2 08/15/17 12:23 37 69 18 156/66 (96) 99 Room Air 08/15/17 09:04 96 Room Air 08/15/17 07:56 36.5 72 16 138/76 (96) 96 Room Air 08/15/17 07:45 Room Air 08/14/17 23:22 Room Air 08/14/17 23:07 36.6 69 16 114/73 (87) 94 Room Air 08/14/17 15:20 Room Air 08/14/17 15:12 36.6 74 18 132/71 (91) 98 Room Air Physical Exam General Appearance: WD/WN, no apparent distress Respiratory/Chest: Auscultation: breath sounds normal Cardiovascular: Heart Auscultation: RRR Abdomen: Bowel Sounds: normal Inspection & Palpation: soft, non-distended, no tenderness, guarding & rebound Assessment and Plan colonoscopy for surveillance
[2017-08-15 15:20] VITALS: BP 144/84; PULSE 74; TEMP 36.4; O2SAT 97
[2017-08-15] MEDS ORDERED: LAVAGE SOLUTION 4000ML PO SCH (16:00)
--- NOTE | 2017-08-15 16:16 | GASTROENTEROLOGY PROGRESS NOTE ---
DATE: 08/15/2017 The patient underwent upper endoscopy earlier this afternoon. 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 Samples were taken of this region as well as the stomach body for H. pylori. The patient describes a curious color to the stools upon presentation to the Emergency Room. These were not melena and had more of a orange color with some stool pattern changes. The patient had taken aspirin for a few days at home. His baseline hemoglobin is 13.4, which was in the 11 range. The patient reports colonoscopy 3 years ago with reported diverticulosis. No prior peptic ulcer disease identified. The source of patient's symptoms are unclear. This was a painless process according to patient, although there may have been some description in stools. He was not on Pepto-Bismol. CT scan from 08/12/2017 showed colonic diverticulosis without diverticulitis. Incidentally there was a 2.8 cm cystic pancreatic tail lesion that may reflect an IPMN. This would be an unlikely source of patient's stool changes. I believe colonoscopy is reasonable given patient's description of darker appearing stools that may have been red-orange in nature as well as a mild drop in hemoglobin. If this is unrevealing, then we would watch conservatively. Regarding the cystic tail lesion, patient is essentially asymptomatic. Evaluation could be either with endoscopic ultrasound and possible fine needle drainage aspiration for chemistry and cytology or continued observation with cross-sectional imaging to assess for any changes. This can be discussed with patient throughout the remainder of his hospitalization and can be arranged as an outpatient as needed. We will arrange for colonoscopy tomorrow with Dr. Tillman.
[2017-08-15 17:12] LABS: HEMATOCRIT 34.6 % (42-52); HEMOGLOBIN 11.3 g/dL (14.0-18.0)
[2017-08-15] MEDS: SIMVASTATIN 20 MG TAB PO SCH (20:40)
[2017-08-15] MEDS: LATANOPROST 0.005% OP SOLN 2.5 ML BTL OPB SCH (20:40)
[2017-08-15 23:07] VITALS: BP 131/81; PULSE 81; TEMP 36.9; O2SAT 98
[2017-08-16] VITALS: O2SAT 96
[2017-08-16] MEDS: PANTOprazole INJ 40 MG in DEXTROSE 5% 100ML IV SCH ×3 (00:09→10:17)
[2017-08-16 07:03] VITALS: BP 133/80; PULSE 87; TEMP 36.2; O2SAT 96
[2017-08-16 07:15] LABS: HEMATOCRIT 32.8 % (42-52); HEMOGLOBIN 10.9 g/dL (14.0-18.0); MEAN CELL VOLUME 86.5 fL (80-100); MEAN CORPUSCULAR HEMOGLOBIN 28.8 pg (25-34); MEAN CORPUSCULAR HGB CONC 33.2 g/dl (32-36); MEAN PLATELET VOLUME 9.8 fL (7.4-10.4); PLATELET COUNT 129 K/uL (130-400); RED CELL DISTRIBUTION WIDTH CV 14.3 % (11.5-14.5); RED CELL DISTRIBUTION WIDTH SD 44.5 fL (36.4-46.3); WHITE BLOOD COUNT 7.06 K/uL (4.8-10.8)
[2017-08-16 07:46] LABS: CALCIUM 8.3 mg/dl (8.5-10.1); CREATININE 0.91 mg/dl (0.60-1.40); POTASSIUM 3.6 mmol/L (3.5-5.1)
[2017-08-16] MEDS: TAMSULOSIN HCL 0.4 MG CAP PO SCH (08:23)
[2017-08-16] MEDS: DORZOLAMIDE/TIMOLOL 22.3/6.8MG/ML 10 ML BTL OPB SCH (08:24)
[2017-08-16] MEDS: SODIUM CHLORIDE 0.65% NA SOLN 45 ML (OCEAN) SCH (08:24)
[2017-08-16] MEDS: METOPROLOL SUCC 25MG EXT REL TAB PO SCH (08:24)
--- NOTE | 2017-08-16 12:37 | Clinical Documentation Query ---
CLINICAL DOCUMENTATION QUERY An 86 year old male who presents to the Emergency Room with complaints of persistent bloody diarrhea since this morning. In your clinical opinion is this patient being managed for: ( x) Acute blood-loss anemia ( ) Not Agree ( ) Other explanation of clinical findings (Please Explain) ( ) Unable to determine (Please Define) ( ) Need to Discuss The medical record reflects the following clinical findings, treatment, and risk factors. Clinical Indicators: Hgb 13.4 trending down 3gm to 10.1 Treatment: IV hydration, serial H&H, EGD Risk Factors: Age, diverticulosis, GI bleed Please clarify and document your clinical opinion in the progress notes and discharge summary. Terms such as "probable", "suspected", "likely", "questionable", "possible", or "still to be ruled out" are acceptable. IF IN AGREEMENT, YOU MUST DOCUMENT ABOVE DIAGNOSTIC STATEMENT IN DAILY PROGRESS NOTES AND DISCHARGE SUMMARY. This document is not part of the patient's record. Thank You, Milena Baker RN [phone]
--- NOTE | 2017-08-16 12:38 | Clinical Documentation Query ---
CLINICAL DOCUMENTATION QUERY An 86 year old male who presents to the Emergency Room with complaints of persistent bloody diarrhea since this morning. In your clinical opinion is this patient being managed for: ( ) Acute blood-loss anemia ( ) Not Agree ( ) Other explanation of clinical findings (Please Explain) ( ) Unable to determine (Please Define) ( ) Need to Discuss The medical record reflects the following clinical findings, treatment, and risk factors. Clinical Indicators: Hgb 13.4 trending down 3gm to 10.1 Treatment: IV hydration, serial H&H, EGD Risk Factors: Age, diverticulosis, GI bleed Please clarify and document your clinical opinion in the progress notes and discharge summary. Terms such as "probable", "suspected", "likely", "questionable", "possible", or "still to be ruled out" are acceptable. IF IN AGREEMENT, YOU MUST DOCUMENT ABOVE DIAGNOSTIC STATEMENT IN DAILY PROGRESS NOTES AND DISCHARGE SUMMARY. This document is not part of the patient's record. Thank You, Milena Baker RN [phone]
--- NOTE | 2017-08-16 13:29 | Endo History and Physical ---
History & Physical Date of Service: Aug 16, 2017. Chief Complaint: GI bleed Referring Physician: Dr Saucedo History of Present Illness for colonoscopy Past Surgical History Hx Post-Op Nausea and Vomiting: No Social History Smoking Status: Never Smoker Hx Substance Use: No Hx Alcohol Use: Yes (WINE/SPIRITS OCCASIONALY) Allergies Coded Allergies: Celecoxib (Verified Adverse Reaction, Intermediate, DIARRHEA, 08/12/17) Current Medications Reported Home Medications Medications Dose Route/Sig Max Daily Dose Days Date Category Dose Instructions [place]owen 0.05% (Desonide) 60 Gm Cr 1 Appln TOP BID 08/12/17 Reported Aspirin Ec (Aspirin) 81 Mg Tab 81 Mg PO DAILY 08/12/17 Reported Cosopt Oph (Dorzolamide Hcl-Timolol Maleat) 1 Abigail Abigail 1 Drops OPB BID 08/12/17 Reported Xalatan 0.005% Oph Abigail (Latanoprost) 0.005 % Abigail 1 Drops OPB HS 08/12/17 Reported Multivitamin (Multivitamins) Tab 1 Tab PO DAILY 08/12/17 Reported Calcium + D3 600-200 mg-Unit (Calcium Carbonate-Vitamin D) 1 Tab Tab 1 Tab PO DAILY 08/12/17 Reported Vitamin D3 (Cholecalciferol) 2,000 Unit Cap 2,000 Units PO DAILY 08/12/17 Reported Vitamin B-12 (Cyanocobalamin) Unknown Strength Tab Unknown Dose PO DAILY 08/12/17 Reported Co Q-10 (Coenzyme Q10 (Ubidecarenone)) 50 Mg Cap 50 Mg PO DAILY 08/12/17 Reported [place]-3 (Fish Oil) 1 Ea Cap 1,000 Mg PO BID 08/12/17 Reported Aleve (Naproxen) 220 Mg Tab 220 Mg PO Q8 PRN 08/12/17 Reported Vitamin B6 (Pyridoxine HCl) 100 Mg Tab 200 Mg PO DAILY 08/12/17 Reported Pyridium (Phenazopyridine HCl) 200 Mg Tab 200 Mg PO TID 08/12/17 Reported Prevacid (Lansoprazole) 30 Mg Cap 30 Mg PO DAILY PRN 08/12/17 Reported Codeine/Guaifenesin 100-10 mg/5Ml (Guaifenesin-Codeine) 1 Abigail Abigail 10 Ml PO Q6H PRN 08/12/17 Reported NOT TO EXCEED 12 TEASPOONS DAILY. Flomax (Tamsulosin Hcl) 0.4 Mg Cap 0.4 Mg PO DAILY 08/12/17 Reported Zocor (Simvastatin) 20 Mg Tab 20 Mg PO QPM 08/12/17 Reported Toprol-Xl (Metoprolol Succinate) 25 Mg Tabcr 25 Mg PO DAILY 08/12/17 Reported Vital Signs Weight (Kilograms): 69.700 Height (Feet): 5 Height (Inches): 7.00 Date Time Temp Pulse Resp B/P (MAP) Pulse Ox O2 Delivery O2 Flow Rate FiO2 08/16/17 13:21 36.7 117 20 156/84 (108) 96 Room Air 08/16/17 08:10 Room Air 08/16/17 07:03 36.2 87 19 133/80 (97) 96 Room Air 08/16/17 00:00 96 Room Air 08/15/17 23:07 36.9 81 14 131/81 (98) 98 Room Air 08/15/17 15:30 Room Air 08/15/17 15:20 36.4 74 18 144/84 (104) 97 Room Air 08/15/17 14:42 84 18 154/84 (107) 97 Room Air 08/15/17 14:27 74 18 154/84 (107) 98 Nasal Cannula 2 08/15/17 14:12 65 18 85/50 (62) 98 Nasal Cannula 2 Physical Exam General Appearance: WD/WN Respiratory/Chest: Respiratory effort: no dyspnea Auscultation: breath sounds normal Cardiovascular: Apical Impulse: pertinent finding Heart Auscultation: RRR, murmur, II/ BARI Abdomen: Inspection & Palpation: soft Assessment and Plan GI bleed for colonoscopy
[2017-08-16] MEDS ORDERED: EpHEDrine SULFATE INJ 50 MG/ML AMP IV PRN (14:00)
[2017-08-16] MEDS ORDERED: ATROPINE SULFATE 0.1 MG/ML 5ML SYR IV PRN (14:00)
--- NOTE | 2017-08-16 14:15 | Discharge Instructions ---
Endoscopy Patient Instructions Date / Procedure(s) Performed Aug 16, 2017. Colonoscopy Allergy Information Coded Allergies: Celecoxib (Verified Adverse Reaction, Intermediate, DIARRHEA, 08/12/17) Discharge Date / Findings Aug 16, 2017. Diverticulosis Medication Instructions Restart Stopped Medication(s): resume meds Current Inpatient Medications Medications (Trade) Dose Ordered Sig/Gokul Route Start Time Stop Time Status Last Admin Dose Admin Ioversol (Optiray 320) 100 ml UD PRN IV 08/12/17 22:15 08/16/17 22:14 Dorzolamide/ Timolol (Cosopt Op Soln) 1 drops BID OPB 08/13/17 09:00 09/12/17 08:59 08/16/17 08:24 1 DROPS Latanoprost (Xalatan Oph Soln) 1 drops HS OPB 08/13/17 21:00 09/12/17 20:59 08/15/17 20:40 1 DROPS Metoprolol Succinate (Toprol Xl Tab) 25 mg DAILY PO 08/13/17 09:00 09/12/17 08:59 08/16/17 08:24 25 MG Simvastatin (Zocor Tab) 20 mg QPM PO 08/13/17 21:00 09/12/17 20:59 08/15/17 20:40 20 MG Tamsulosin HCl (Flomax Cap) 0.4 mg DAILY PO 08/13/17 09:00 09/12/17 08:59 08/16/17 08:23 0.4 MG Acetaminophen (Tylenol Tab) 650 mg Q4H PRN PO 08/13/17 01:15 09/12/17 01:14 Ondansetron HCl (Zofran Inj) 4 mg Q6H PRN IV 08/13/17 01:15 09/12/17 01:14 Sodium Chloride ([place] Nasal [place]) 2 sprays BID NA 08/14/17 21:00 09/13/17 20:59 08/16/17 08:24 2 SPRAYS Ephedrine Sulfate (EpHEDrine SULFATE INJ) 5 mg Q5M PRN IV 08/16/17 14:00 08/17/17 13:59 UNV Atropine Sulfate (Atropine Sulfate 0.1mg/ml Inj) 0.5 mg Q1M PRN IV 08/16/17 14:00 08/17/17 13:59 UNV Provider Instructions Activity Restrictions - No exercising or heavy lifting for 24 hours. - Do not drink alcohol the day of the procedure. - Do not drive a car or operate machinery until the day after the procedure. - Do not make any important decisions or sign important papers in 24 hours after the procedure. Following Day: - Return to full activity which may include returning to work/school. Diet Start your diet with liquids and light foods (jello, soup, juice, toast). Then eat your usual diet if not nauseated. Treatment For Common After Affects For mild abdominal pain, bloating, or excessive gas: - Rest - Eat lightly - Lie on right side Follow-Up Information Follow-up with as scheduled Anesthesia Information What You Should Know You have had a procedure that required some medicine to reduce anxiety and discomfort. This treatment is called moderate sedation. After receiving the treatment, you may be sleepy, but you will be able to breathe on your own. The effects of the treatment may last for several hours. Follow these instructions along with Activity/Diet recommendations noted above: * Do NOT do anything where dizziness or clumsiness would be dangerous. * Rest quietly at home today, then you can be up and about tomorrow. * Have a responsible person stay with you the rest of today. * You may have had an I.V. today. If so, you may take the dressing off later today. Recommendations Call your doctor if: * Trouble breathing * Continuous vomiting for more than 24 hours * Temperature above 101 degrees * Severe abdominal pain or bloating * Pain not relieved by pain medicine ordered * There is increased drainage or redness from any incision * A large amount of rectal bleeding greater than 2-3 tablespoons. (If you had a polyp/s removed or have hemorrhoids, a small amount of blood - from the rectum is to be expected.) * You have any unanswered questions or concerns. IN THE EVENT OF A SERIOUS EMERGENCY, GO TO THE NEAREST EMERGENCY ROOM Your discharge instructions were prepared by provider Boubacar Tillman. Patient Instructions Signature Page Davey Gonzales Patient (or Guardian) Signature/Date: I have read and understand the instructions given to me by my caregivers. Caregiver/RN/Doctor Signature/Date: The above-named patient and/or guardian has received patient instructions on this date. + Original Patient Signature Page (only) stays with chart. Please make copy for patient.
--- NOTE | 2017-08-16 14:19 | Discharge Instructions ---
Discharge Instructions Date of Service Aug 16, 2017. Admission Reason for Admission: Gi Bleed Discharge Discharge Diagnosis / Problem: Acute GI bleed Discharge Goals Goal(s): Improve function Activity Recommendations Activity Limitations: per Instructions/Follow-up section . Instructions / Follow-Up Instructions / Follow-Up During this visit, you were treated for an acute GI bleed. This bleed was likely related to overuse of aspirin. Your EGD showed some mild gastritis for which a biopsy was taken. Your PCP will be able to determine what the biopsy showed. There was no active bleeding in your stomach or duodenum. Because of the gastritis and your response to aspirin use, you should hold all NSAID products at this time. This includes your daily aspirin and as-needed aleve for pain as well as ibuprofen. You may take acetaminophen for pain. You should discuss with your PCP your need to be on a daily baby aspirin in the future. Your colonoscopy showed diverticulosis, which may also have contributed to your bleeding. During this visit a lesion on your pancreas was found. We do not think this is related to the issues you have been experiencing, but this should regardless be followed up as an outpatient. Your PCP will decide when you should have a repeat scan done for this lesion. Continue your other home medications aside from the baby aspirin and aleve. Follow up with your primary care doctor in the next week. Current Hospital Diet Patient's current hospital diet: Full Liquid Diet Discharge Diet Recommended Diet: Low Fiber Diet Procedures Procedures Performed: EGD Pending Studies Studies pending at discharge: no Medical Emergencies . Who to Call and When: Medical Emergencies: If at any time you feel your situation is an emergency, please call 911 immediately. . Non-Emergent Contact Non-Emergency issues call your: Primary Care Provider . . "Provider Documentation" section prepared by Eleanor Samano. . VTE Core Measure Inpt VTE Proph given/why not?: SCD's
--- NOTE | 2017-08-16 14:19 | GI REPORT ---
Procedure Date: 08/16/2017 1:57 PM Procedure: Colonoscopy Indications: Gastrointestinal bleeding Medicines: Propofol total dose 200 mg IV, Lidocaine 40 mg IV, Neosynephrine 400 mcg IV Complications: No immediate complications. Estimated Blood Loss: Estimated blood loss: none. Procedure: Pre-Anesthesia Assessment: - Prior to the procedure, a History and Physical was performed, and patient medications, allergies and sensitivities were reviewed. The patient's tolerance of previous anesthesia was reviewed. - The risks and benefits of the procedure and the sedation options and risks were discussed with the patient. All questions were answered and informed consent was obtained. After I obtained informed consent, the scope was passed under direct vision. Throughout the procedure, the patient's blood pressure, pulse, and oxygen saturations were monitored continuously. The scope was introduced through the anus and advanced to the cecum, identified by appendiceal orifice and ileocecal valve. The colonoscopy was performed without difficulty. The patient tolerated the procedure well. The quality of the bowel preparation was good. Findings: Multiple diverticula were found in the sigmoid colon and ascending colon. Impression: - Diverticulosis in the sigmoid colon and in the ascending colon. - No specimens collected. Recommendation: - Return patient to [facility] for ongoing care. - Low fiber diet. Boubacar Tillman M.D. Boubacar Tillman MD 08/16/2017 2:18:45 PM This report has been signed electronically. Note Initiated On: 08/16/2017 1:57 PM I attest to the content of the Intraoperative Record and orders documented therein, exceptions below
--- NOTE | 2017-08-16 14:28 | GASTROENTEROLOGY PROGRESS NOTE ---
DATE: 08/16/2017 DATE: 08/16/2017 SUBJECTIVE: The patient underwent a colonoscopy today for GI bleeding. Yesterday his EGD did not reveal significant source for GI blood loss. His colonoscopy showed diverticulosis in the sigmoid and ascending colon, but no other potential source of blood loss. IMPRESSION: The patient had GI bleeding, probably from diverticulosis. At this point, we can advance his diet to a low fiber diet.
--- NOTE | 2017-08-16 14:28 | Anesthesiology Progress Note ---
Anesthesia Post Op Note Date & Time Aug 16, 2017 at 14:27 Vital Signs Pain Intensity: 2.0 Vital Signs Past 12 Hours Date Time Temp Pulse Resp B/P (MAP) Pulse Ox O2 Delivery O2 Flow Rate FiO2 08/16/17 13:21 36.7 117 20 156/84 (108) 96 Room Air 08/16/17 08:10 Room Air 08/16/17 07:03 36.2 87 19 133/80 (97) 96 Room Air Notes Mental Status: alert / awake / arousable, participated in evaluation Pt Amnestic to Procedure: Yes Nausea / Vomiting: adequately controlled Pain: adequately controlled Airway Patency, RR, SpO2: stable & adequate BP & HR: stable & adequate Hydration State: stable & adequate Anesthetic Complications: no major complications apparent
[2017-08-16 15:20] VITALS: BP 147/83; PULSE 82; TEMP 36.5; O2SAT 96
[2017-08-16 17:40] VITALS: BP 147/83; PULSE 82; TEMP 36.5; O2SAT 96
--- NOTE | 2017-08-16 23:45 | Discharge Summary ---
Discharge Summary Date of Service Aug 16, 2017. Discharge Summary Admission Date: Aug 13, 2017 at 01:15 Discharge Date: Aug 16, 2017 Discharge Disposition: Home Principal Diagnosis: Acute GI bleed Problems/Secondary Diagnoses: HTN, HLD, BPH Procedures: EGD and colonoscopy Consultations: GI - [facility] Medication Reconciliation Continued Medications: Calcium Carbonate-Vitamin D (Calcium + D3 600-200 mg-Unit) 1 Tab Tab 1 TAB PO DAILY Cholecalciferol (Vitamin D3) 2,000 Unit Cap 2000 UNITS PO DAILY, CAP Coenzyme Q10 (Ubidecarenone) (Co Q-10) 50 Mg Cap 50 MG PO DAILY Cyanocobalamin (Vitamin B-12) Unknown Strength Tab Unknown Dose PO DAILY, TAB Desonide 0.05% (Desowen 0.05%) 60 Gm Cr 1 APPLN TOP BID, GM Dorzolamide Hcl-Timolol Maleat (Cosopt Oph) 1 Abigail Abigail 1 DROPS OPB BID, ML Fish Oil ([place]-3) 1 Ea Cap 1000 MG PO BID, CAP Guaifenesin-Codeine (Codeine/Guaifenesin 100-10 mg/5Ml) 1 Abigail Abigail 10 ML PO Q6H PRN for Cough NOT TO EXCEED 12 TEASPOONS DAILY. Lansoprazole (Prevacid) 30 Mg Cap 30 MG PO DAILY PRN for REFLUX, CAP Latanoprost (Xalatan 0.005% Oph Abigail) 0.005 % Abigail 1 DROPS OPB HS, ML Metoprolol Succ (Toprol Xl) (Toprol-Xl) 25 Mg Tabcr 25 MG PO DAILY Multivitamin (Multivitamin) Tab 1 TAB PO DAILY, TAB Phenazopyridine HCl (Pyridium) 200 Mg Tab 200 MG PO TID for Bladder Pain, #6 TAB Pyridoxine (Vitamin B6) 100 Mg Tab 200 MG PO DAILY, TAB Simvastatin (Zocor) 20 Mg Tab 20 MG PO QPM, TAB Tamsulosin Hcl (Flomax) 0.4 Mg Cap 0.4 MG PO DAILY, CAP Discontinued Medications: Aspirin (Aspirin Ec) 81 Mg Tab 81 MG PO DAILY Naproxen (Aleve) 220 Mg Tab 220 MG PO Q8 PRN for Pain, TAB Discharge Exam ROS Constitutional: + weakness, + fatigue, No fever, No chills, No sweats, No weight loss, No problem reported Respiratory: + cough, No sputum, No wheezing, No shortness of breath, No dyspnea on exertion, No dyspnea at rest, No hemoptysis, No problem reported Cardiovascular: No chest pain, No orthopnea, No PND, No edema, No claudication, No palpitations, No problem reported Abdomen: No pain, No nausea, No vomiting, No diarrhea, No constipation, No GI bleeding, No problem reported Male : + urinary frequency All Other Systems: Reviewed and Negative PE General Appearance: WD/WN, no apparent distress Eyes: normal inspection, PERRL, EOMI ENT: normal ENT inspection, pharynx normal, + nasal congestion Neck: supple, no adenopathy, no JVD Respiratory/Chest: chest non-tender, lungs clear, normal breath sounds, no respiratory distress, no accessory muscle use Cardiovascular: regular rate, rhythm, no edema, no gallop, no JVD, no murmur Abdomen: normal bowel sounds, non tender, soft, no organomegaly, no pulsatile mass Extremities: no pedal edema Neurologic/Psychiatric: no motor/sensory deficits, alert, normal mood/affect, oriented x 3 Skin: normal color, warm/dry, no rash Hospital Course Mr. Gonzales is an 86 year old male with a history of HTN, HLD, BPH who developed nasal congestion early last week and had been taking several daily ASA for the congestion. He presented with 4x episodes of diarrhea with bright red blood. He denies abdominal pain, nausea/vomiting, fevers, SOB or lightheadedness. The pt has a PMH of diverticulosis without diverticulitis and reports polyps on a distant colonoscopy. His hemoglobin was monitored and was stable without need for transfusion. CT Abdomen was negative for any acute process. A colonoscopy and endoscopy were performed as described below, citing only diverticulosis as possible source of GI bleed. Pathology results from biopsies are pending. Patient had an uneventful stay in hospital. Recommend re-assessing need for daily ASA. Stop all NSAIDs for now. 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 Lipase normal. GI bleed & Diarrhea, - Patient had no further episodes of loose stool or BRBPR/Melena after 1st day in hospital - CT abdomen negative, cdiff negative, stool culture negative - GI consulted - EGD: Nl esophagus with mild Schatzki ring, Medium sized hiatal hernia, Gastritis biopsied, mucosal variant in duodenum biopsied; await pathology - No aspirin, ibuprofen, naproxen, or other NSAID drugs - Colonoscopy: diverticulosis, but no other source of possible bleed. Pancreatic Lesion - incidental finding on CT, discussed with patient - outpatient follow up Total Time Spent: Greater than 30 minutes This includes examination of the patient, discharge planning, medication reconciliation, and communication with other providers. Discharge Instructions Please refer to the electronic Patient Visit Report (Discharge Instructions) for additional information. Additional Copies To Harrison Saucedo M.D. Resident Tracking Resident Involvement: Resident Care Provided Care Provided: [facility] Medicine Reviewed: Pt Seen/Exam by Me History no rectal bleeding feeling strong and ready to go home. Constitutional: denies: fever Respiratory: negative: short of breath Cardiovascular: denies chest pain General Appearance: no apparent distress Respiratory: lungs clear, no respiratory distress Cardiovascular: regular rate, rhythm Gastrointestinal: normal bowel sounds, non tender, soft Neurologic/Psychiatric: alert, oriented x 3 Skin Characteristics: warm/dry Assessment/Plan Resident Physician Supervision Note: I independently interviewed and examined the patient and verified the murrell history and physical, reviewed labs and image studies, discussed the case with the resident Dr. Samano and agree with the findings and care plan. Time spent in discharge 35 min
== END 2017-08-16 19:19 | disposition home or self-care (01) | DRG 379 ==
LOC: C.EDB 20:42 → C.MSW 08-13 01:15 → ENRESERV 08-13 01:29
PROVIDERS: ADMIT Internal Medicine; ATTEND Family Medicine
PROC: 0DB68ZX Excision of Stomach, Via Natural or Artificial Opening Endoscopic, Diagnostic (ICD-10-PCS; principal; 2017-08-15 12:18)
PROC: 0DB98ZX Excision of Duodenum, Via Natural or Artificial Opening Endoscopic, Diagnostic (ICD-10-PCS; principal; 2017-08-15 12:18)
PROC: 0DJD8ZZ Inspection of Lower Intestinal Tract, Via Natural or Artificial Opening Endoscopic (ICD-10-PCS; 2017-08-16)
DX: K57.31 Diverticulosis of large intestine without perforation or abscess with bleeding (principal); T39.015A Adverse effect of aspirin, initial encounter; I10 Essential (primary) hypertension; N40.0 Benign prostatic hyperplasia without lower urinary tract symptoms; K57.90 Diverticulosis of intestine, part unspecified, without perforation or abscess without bleeding; E78.5 Hyperlipidemia, unspecified; K86.9 Disease of pancreas, unspecified; K44.9 Diaphragmatic hernia without obstruction or gangrene; Z79.82 Long term (current) use of aspirin; K29.70 Gastritis, unspecified, without bleeding; Y92.019 Unspecified place in single-family (private) house as the place of occurrence of the external cause